=== PATIENT | female | born 1955 | race Caucasian/White ===

== ENCOUNTER 2018-08-29 14:54 | Emergency (ER) | payer OTHER ==
[~2018-08-29] VITALS: Ht 154.9 cm; Wt 52.2 kg
--- NOTE | 2018-08-29 14:54 | NUR ---
PATIENT BIBA TO BED 5 AT THIS TIME.
[2018-08-29 15:00] VITALS: BP 226/99
--- NOTE | 2018-08-29 15:05 | NUR ---
ROMANIAN SPEAKING 62YR OLD FEMALE BIB [facility] FROM HOME WITH C/O LOC PER FAMILY. BLOOD SUGAR AT THE SCENE 22 GIVEN D5 ENROUTE BY EMS. CURRENT BLOOD SUGAR 115. ANSWER ALL QUESTION APPROPRIATELY AT THIS TIME. AAO X4. C/O ABDOMINAL PAIN. HX FALL LAST MONTH WITH LT FACIAL DISCOLORATION HX; DM, HTN, ESRD RX; --
[2018-08-29] MEDS ORDERED: FAMO-90 PO (15:18)
[2018-08-29] MEDS ORDERED: ZAR2.5 PO (15:18)
[2018-08-29] MEDS ORDERED: NIFE-144 PO (15:18)
[2018-08-29] MEDS ORDERED: SYN.1 PO (15:18)
[2018-08-29] MEDS ORDERED: GLIP5TER PO (15:18)
[2018-08-29] MEDS ORDERED: MULT-1469 PO (15:18)
[2018-08-29] MEDS ORDERED: HYDR-1100 PO (15:18)
[2018-08-29] MEDS ORDERED: FURO-570 PO (15:18)
[2018-08-29] MEDS ORDERED: METO25TA PO (15:18)
[2018-08-29] MEDS ORDERED: FAMOTIDINE 20 MG/2 ML VIAL IVP ONE (15:30)
[2018-08-29] MEDS ORDERED: ONDANSETRON 4 MG/2 ML VIAL IVP ONE (15:30)
[2018-08-29 16:02] LABS: BASOPHILS % (AUTO) 0.6 % (0.0-2.0); EOSINOPHILS # (AUTO) 0.1 K/uL (0-0.4); EOSINOPHILS % (AUTO) 0.9 % (0.0-4.0); HEMATOCRIT 38.5 % (36-48); LYMPHOCYTES # (AUTO) 1.1 K/uL (2.5-16.5); LYMPHOCYTES % (AUTO) 13.6 % (20.5-51.1); MEAN CORPUSCULAR HEMOGLOBIN 28 pg (27-31); MEAN CORPUSCULAR HGB CONC 31 g/dL (33-37); MEAN CORPUSCULAR VOLUME 89.6 fL (80-94); MONOCYTES # (AUTO) 0.4 K/uL (0.8-1.0); MONOCYTES % (AUTO) 4.5 % (1.7-9.3); NEUTROPHILS # (AUTO) 6.4 K/uL (1.8-7.7); NEUTROPHILS % (AUTO) 80.4 % (42.2-75.2); PLATELET COUNT (AUTO) 320 K/uL (140-450); RED CELL DISTRIBUTION WIDTH 19.1 % (11.6-13.7); WHITE BLOOD COUNT (AUTO) 7.9 K/uL (4.8-10.8)
[2018-08-29 16:29] LABS: ALBUMIN 2.6 g/dL (3.4-5.0); ANION GAP 5.8 (8-16); CARBON DIOXIDE 32.2 mmol/L (21-32); CREATININE 2.1 mg/dL (0.6-1.3); TOTAL BILIRUBIN 0.2 mg/dL (0.0-1.0)
--- NOTE | 2018-08-29 16:34 | NUR ---
urine specimen collected and hand delivered to the lab
[2018-08-29 16:40] LABS: PROTHROMBIN TIME 9.1 secs (10.8-13.4)
[2018-08-29 16:45] LABS: APPEARANCE,URINE CLEAR (CLEAR); BILIRUBIN,URINE NEGATIVE (NEGATIVE); BLOOD, URINE TRACE-L (NEGATIVE); COLOR,URINE YELLOW (YELLOW); LEUKOCYTE ESTERASE ,URINE 1+ (NEGATIVE); NITRITE, URINE NEGATIVE (NEGATIVE); PH,URINE 7.5 (5.0-9.0); UGLUCOSE NEGATIVE (NEGATIVE)
--- NOTE | 2018-08-29 16:52 | NUR ---
critical lab received at this time, blood glucose 49. er notified.
[2018-08-29] MEDS ORDERED: DEXTROSE 50% 50 ML SYR IVP ONE (16:55)
[2018-08-29 17:02] LABS: RBC,URINE 3-10 (FEW) /HPF (0-5)
--- NOTE | 2018-08-29 17:42 | NUR ---
DINNER PROVIDED ORDERED, DAUGHTER AT BEDSIDE FOR ASSISTANCE
[2018-08-29 18:28] VITALS: BP 156/72
--- NOTE | 2018-08-29 18:29 | NUR ---
Patient discharged with v/s stable. Written and verbal after care instructions given and explained. Patient verbalized understanding. Ambulatory with steady gait. All questions addressed prior to discharge. Advised to follow up with PMD.
== END 2018-08-29 18:00 | disposition home or self-care (01) ==
LOC: MED 14:54
DX: E11.649 Type 2 diabetes mellitus with hypoglycemia without coma (principal); N39.0 Urinary tract infection, site not specified; R74.8 Abnormal levels of other serum enzymes; K86.1 Other chronic pancreatitis; I10 Essential (primary) hypertension
CPT/HCPCS: 36415; 71045; 80053; 81001; 82150; 83690; 84484; 85025; 85610; 85730; 87086; 93005; 96374; 96375; 99284; J2405; J3490; Q0092